=== PATIENT | male | born 1965 | race Caucasian/White ===

== ENCOUNTER 2024-02-19 10:29 | Observation (INO) ==
[2024-02-19] MEDS: ONDANSETRON 4 MG/2 ML VIAL IV ONE (11:00)
[2024-02-19] MEDS: HYDROmorphone 1 MG/ML SYRINGE IV ONE (11:00)
[2024-02-19 11:27] LABS: Basophils # (Auto) 0.05 K/mcL (0.00-0.30); Basophils % (Auto) 0.5 % (0.0-2.0); Eosinophils # (Auto) 0.17 K/mcL (0.00-0.70); Eosinophils % (Auto) 1.8 % (0.0-7.0); Hematocrit 45.2 % (40.1-51.0); Hemoglobin 15.1 g/dL (13.7-17.5); Lymphocytes # (Auto) 0.61 K/mcL (1.50-4.80); Lymphocytes % (Auto) 6.6 % (15.5-49.0); Mean Cell Volume 92.6 fL (80.0-100.0); Mean Corpuscular HGB Conc 33.4 g/dL (31.0-36.0); Mean Platelet Volume 9.3 fL (8.8-12.5); Monocytes # (Auto) 0.96 K/mcL (0.10-0.90); Monocytes % (Auto) 10.4 % (1.0-12.0); Neutrophils % (Auto) 80.5 % (38.0-78.0); Platelet Count 186 K/mcL (140-440); RBC 4.88 M/mcL (4.63-6.08); Red Cell Distribution Width 12.4 % (11.5-14.5); WBC 9.2 K/mcL (4.5-11.0)
[2024-02-19 11:50] LABS: ALT/SGPT 12 U/L (<40); AST/SGOT 16 U/L (<40); Albumin 3.7 gm/dL (3.2-5.2); Albumin/Globulin Ratio 1.6 (1.0-2.3); Alkaline Phosphatase 61 U/L (39-117); Bilirubin,Total 0.6 mg/dL (0.1-1.0); Blood Urea Nitrogen 28 mg/dL (6-20); Calcium 8.6 mg/dL (8.6-10.4); Carbon Dioxide 24 mmol/L (22-30); Chloride 105 mmol/L (96-108); Globulin 2.3 gm/dL (2.2-3.7); Glomerular Filtration Rate 50; Glucose 192 mg/dL (70-105); Potassium 3.7 mmol/L (3.3-5.1); Sodium 141 mmol/L (133-145)
[2024-02-19] MEDS: HYDROmorphone 0.5 MG/0.5 ML SYRINGE IV PRN (13:25)
[2024-02-19] MEDS ORDERED: DEXTROSE 50% 50 ML VIAL IV PRN (13:49)
[2024-02-19] MEDS ORDERED: METOCLOPRAMIDE 10 MG/2 ML VIAL IV PRN (13:49)
[2024-02-19] MEDS ORDERED: DEXTROSE 31 GM ORAL.SUSP PO PRN (13:49)
[2024-02-19] MEDS ORDERED: POTASSIUM CHLORIDE 40 MEQ in DEXTROSE 5% IN WATER 500 ML IV PRN (13:49)
[2024-02-19] MEDS ORDERED: morphine 4 MG/ML VIAL IV PRN (13:49)
[2024-02-19] MEDS ORDERED: SENNOSIDES 1 TABLET PO PRN (13:49)
[2024-02-19] MEDS ORDERED: ONDANSETRON 4 MG/2 ML VIAL IV PRN (13:49)
[2024-02-19] MEDS ORDERED: ACETAMINOPHEN 325 MG TABLET PO PRN (13:49)
[2024-02-19] MEDS ORDERED: POLYETHYLENE GLYCOL 3350 17 GM PACKET PO PRN (13:49)
[2024-02-19] MEDS ORDERED: IPRATROPIUM/ALBUTEROL 3 ML AMPUL.NEB NEB PRN (13:49)
[2024-02-19] MEDS ORDERED: MAGNESIUM SULFATE 2 GM/50 ML BAG IV PRN (13:49)
[2024-02-19] MEDS ORDERED: POTASSIUM CHLORIDE 20 MEQ TABLET PO PRN ×2 (13:49)
[2024-02-19] MEDS: LIDOCAINE 4% TOP PATCH TOPICAL SCH (14:36)
[2024-02-19] MEDS: oxyCODONE/APAP 5/325MG TABLET PO PRN (16:49)
[2024-02-19] MEDS: 0.9 % SODIUM CHLORIDE 10 ML SYRINGE IV SCH (16:51)
[2024-02-19] MEDS: INSULIN LISPRO 1 UNIT/0.01 ML UNIT SQ SCH (17:49)
[2024-02-19] MEDS: DOCUSATE SODIUM 100 MG CAPSULE PO SCH (21:03)
[2024-02-20] MEDS: BISOPROLOL 5 MG TABLET PO SCH (08:26)
[2024-02-20] MEDS: ENOXAPARIN 40 MG/0.4 ML SYRINGE SQ SCH (08:26)
[2024-02-20] MEDS: ATORVASTATIN 20 MG TABLET PO SCH (08:26)
[2024-02-20] MEDS: OLMESARTAN MEDOXOMIL 20 MG TABLET PO SCH (08:27)
[2024-02-20] MEDS: TORSEMIDE 10 MG TABLET PO SCH (08:27)
[2024-02-20] MEDS: oxyCODONE/APAP 5/325MG TABLET PO PRN (14:07)
[2024-02-21] MEDS: PNEUMOCOCCAL 23-VAL P-SAC VAC 0.5 ML SYRINGE IM ONE (11:40)
[2024-02-21] MEDS: FLU VACC TS2024-25(6MOS UP)/PF 45 MCG/0.5 ML SYRINGE IM ONE (11:51)
== END 2024-02-21 12:38 | disposition home or self-care (01) ==
LOC: ED 10:29 → INTOOBSV 13:40 → MEDSUR 13:40
PROVIDERS: ADMIT Internal Medicine; ATTEND Internal Medicine